=== PATIENT | male | born 1985 | race African-American/Black ===

== ENCOUNTER 2023-08-24 15:45 | Outpatient (CLI) | payer OTHER ==
[2023-08-24 18:10] LABS: ALBUMIN 4.5 g/dL (3.2-5.5); ALBUMIN/GLOBULIN RATIO 1.5 (1.0-2.2); BILIRUBIN,TOTAL 0.5 mg/dL (0.2-1.0); CALCIUM 9.6 mg/dL (8.5-10.3); CRP - C-REACTIVE PROTEIN 1.5 mg/dL (<0.5); POTASSIUM 3.7 mmol/L (3.5-4.5); TOTAL PROTEIN 7.6 g/dL (6.4-8.9); URIC ACID 6.3 mg/dL (4.4-7.6)
[2023-08-24 18:21] LABS: THYROID STIMULATING HORMONE 1.81 uIU/mL (0.34-5.60)
[2023-08-24 18:24] LABS: BASOPHILS % (AUTO) 0.9 %; HCT - HEMATOCRIT 46.3 % (42.0-52.0); HGB - HEMOGLOBIN 15.6 g/dL (14.0-18.0); LYMPHOCYTES # (AUTO) 1.1 10^3/uL (1.5-3.5); LYMPHOCYTES % (AUTO) 34.8 %; MEAN CORPUSCULAR HEMOGLOBIN 30.1 pg (27.0-31.0); MEAN CORPUSCULAR HGB CONC 33.7 g/dL (32.0-36.0); MEAN CORPUSCULAR VOLUME 89.2 fL (80.0-94.0); MEAN PLATELET VOLUME 11.4 fL (7.4-11.4); MONOCYTES # (AUTO) 0.6 10^3/uL (0.0-1.0); NEUTROPHILS # (AUTO) 1.5 10^3/uL (1.5-6.6); NEUTROPHILS % (AUTO) 46.3 %; PLT - PLATELET COUNT 159 10^3/uL (130-450); RED BLOOD COUNT 5.19 10^6/uL (4.70-6.10); RED CELL DISTRIBUTION WIDTH 13.2 % (12.0-15.0); WHITE BLOOD COUNT 3.2 x10^3/uL (4.8-10.8)
[2023-08-24 19:34] LABS: RHEUMATOID FACTOR NEGATIVE (Negative)
== END 2023-08-24 16:00 | disposition home or self-care (01) ==
LOC: LAB.N 15:45
PROVIDERS: ATTEND Family Medicine
DX: M60.9 Myositis, unspecified (principal); M06.4 Inflammatory polyarthropathy; M79.2 Neuralgia and neuritis, unspecified
CPT/HCPCS: 36415; 80053; 82550; 84443; 84550; 85025; 85651; 86038; 86140; 86430

== ENCOUNTER 2023-08-25 15:53 | Emergency (ER) | payer OTHER ==
[2023-08-25 16:05] VITALS: BP 160/88; O2SAT 100
--- NOTE | 2023-08-25 17:30 | ED Physician Documentation ---
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 On Wednesday, 5 days ago he worked out heavily and then played soccer for a long time. The next day he was quite sore, he remained sore the day after that. Now he is feeling better but complains of bilateral toe pain from his boots. Also wants me to know that since boot camp he has had a lot of sensitivity in his teeth. No fevers, chills, sore throat, runny nose, cough, urinary complaints. Then everything kind of got worse on Wednesday because [place] because many of his colleagues are on leave. He had to carry heavy bags of dirt around. PD PAST MEDICAL HISTORY - Past Medical History Past Medical History: No - Past Surgical History Past Surgical History: No - Allergies Allergies/Adverse Reactions: Allergies Allergy/AdvReac Type Severity Reaction Status Date / Time No Known Drug Allergies Allergy Verified 08/25/23 15:59 - Social History Does the pt smoke?: No Smoking Status: Never smoker Does the pt drink ETOH?: No Does the pt have substance abuse?: No - Immunizations Immunizations are current?: Yes - POLST Patient has POLST: No PD ED PE NORMAL - Vitals Vital signs reviewed: Yes - General General: Alert and oriented X 3, No acute distress - HEENT HEENT: PERRL, EOMI, Ears normal, Moist mucous membranes, Pharynx benign - Neck Neck: Supple, no meningeal sign, No bony TTP - Cardiac Cardiac: RRR, No murmur - Respiratory Respiratory: No respiratory distress Results - Vitals Vitals: Vital Signs - 24 hr 08/25/23 15:57 Temperature 36.8 C Heart Rate 90 Respiratory 16 Rate Blood Pressure 160/88 H O2 Saturation 100 Oxygen O2 Source Room air PD Medical Decision Making - ED course ED course: This is an otherwise healthy gentleman who is active duty in the [employer] With normal exam and muscle aches related to overuse. The time course, is not concerning for rhabdomyolysis given that all of the actual physical labor was several days ago and he has no urinary complaints with a normal exam. Also consider viral illnesses but he has no respiratory symptoms. Departure - Departure Disposition: 01 Home, Self Care Clinical Impression: Muscle ache Condition: Good Record reviewed to determine appropriate education?: Yes Instructions: ED Muscle Aching Comments: I do not think there is anything serious going on, but you should rest and take some ibuprofen and drink plenty of fluids. You did need to follow-up with your flight surgeon and your dentist regarding your other complaints. Return for new or worsening symptoms. Forms: PCP List, Activity restrictions
== END 2023-08-25 17:35 | disposition home or self-care (01) ==
LOC: ED 15:53
DX: M79.10 Myalgia, unspecified site (principal); M79.675 Pain in left toe(s); M79.674 Pain in right toe(s)
CPT/HCPCS: 99281; 99283